=== PATIENT | male | born 1985 | race Caucasian/White ===

== ENCOUNTER 2019-06-07 07:46 | Inpatient (IN) | payer BC, OTHER ==
[~2019-06-07] VITALS: Ht 182.9 cm; Wt 139.3 kg
[2019-06-07] VITALS (7 sets, daily range): BP systolic 137–173; BP diastolic 78–98
[2019-06-07 08:51] LABS: ABSOLUTE NEUTROPHILS 7.7 thou/uL (1.4-8.2); BASOPHILS 0.6 % (0.0-2.0); EOSINOPHILS 4.7 % (0.0-3.0); HEMATOCRIT 41.9 % (42.0-52.0); HEMOGLOBIN 13.8 gm/dL (14.0-18.0); MCH 27.7 pg (26.0-34.0); MCHC 32.9 g/dL (28.0-37.0); MCV 84.2 fL (80.0-100.0); MONOCYTES 6.8 % (1.0-8.0); PLATELET COUNT 482 thou/uL (150-400); POLYS 75.9 % (36.0-66.0); RBC 4.97 mil/uL (4.50-6.00); WBC 10.1 thou/uL (4.0-11.0)
[2019-06-07 08:55] LABS: CALCIUM 9.5 mg/dL (8.5-10.1); CREATININE 0.7 mg/dL (0.7-1.3); POTASSIUM 4.2 mmol/L (3.5-5.1)
[2019-06-07 09:01] LABS: ALBUMIN 2.5 g/dL (3.4-5.0); DIRECT BILIRUBIN 3.4 mg/dL (<0.1-0.2); TOTAL BILIRUBIN 4.6 mg/dL (<0.1-1.0); TOTAL PROTEIN 7.9 g/dL (6.4-8.2)
--- NOTE | 2019-06-07 17:19 | NUR ---
A&O, clam and pleasant; denied pain, no n/v, appetite good, tolerate food well. vss, afebrile, denied pain. Lab reviewed; patient watching TV in bed. Doctor is notified. will keep monitoring.
--- NOTE | 2019-06-07 22:26 | NUR ---
Assumed pt @1915. pt a&ox4. pt stated frustration about not being seen by anyone to come up with a treatment plan for him. nurse explained that GI has been consulted and hopefully theyre come in the morning to see pt. Pt expressed understanding. pt BG around 1800 was in the 300's. pt refused for BG to be checked, stating that he does not want to take insulin if he has too. assessments benign. pt is resting with no distress. call light in reach and pt is encouraged to call for any assistance. will cont to monitor
[2019-06-08 03:46] VITALS: BP 154/81
[2019-06-08 05:40] LABS: HEMATOCRIT 35.5 % (42.0-52.0); MCH 26.9 pg (26.0-34.0); MCHC 32.5 g/dL (28.0-37.0); MCV 82.7 fL (80.0-100.0); RBC 4.29 mil/uL (4.50-6.00); RDW 13.9 % (10.5-14.5); WBC 11.4 thou/uL (4.0-11.0)
[2019-06-08 05:53] LABS: ALBUMIN 2.3 g/dL (3.4-5.0); CALCIUM 9.1 mg/dL (8.5-10.1); CREATININE 0.6 mg/dL (0.7-1.3); HEMOGLOBIN 11.5 gm/dL (14.0-18.0); TOTAL BILIRUBIN 3.3 mg/dL (<0.1-1.0); TOTAL PROTEIN 6.9 g/dL (6.4-8.2)
[2019-06-08 08:56] VITALS: BP 152/83
[2019-06-08 12:04] LABS: PROTIME 10.2 Seconds (9.3-11.4)
--- NOTE | 2019-06-08 16:02 | NUR ---
PT ADMITTED RELATED TO ELEVATED LFT'S, ABNORMAL CT OF ABD. CM EVIEWED CHART AND SPOKE WITH CARE TEAM. CM MET WITH PT AT BEDSIDE THIS DAY. PT IS A&O X4. CM ROLE INTRODUCED. PT INDICATED HE LIVES IN A HOUSE ALONE WITH 3 STEPS TO ENTER AND 12 STEPS INSIDE. 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 PT INICATED NO DME OR HH HX. PT INDICATED NO PCP CURRENTLY BUT THAT HE WILL CHECK WITH HIS INSURANCE AND FIND AN IN [facility] IN [facility] [place]. PT INDICATED HE PLANS TO RETURN HOME ONCE MEDICALLY STABLE. CM TO FOLLOW INDICATED WITH DC PLANNING.
[2019-06-08 17:00] VITALS: BP 152/82
[2019-06-08 17:08] LABS: IgG 1050 mg/dL (700-1600)
[2019-06-08 17:19] LABS: HDL CHOLESTEROL 24 mg/dL (>40); TC:HDL 17.5 Ratio (Not establshd); TRIGLYCERIDE 474 mg/dL (<150); VLDL 95 mg/dL (<40)
[2019-06-08 17:29] LABS: CHOLESTEROL 420 mg/dL (<200)
[2019-06-08 19:06] VITALS: BP 139/87
--- NOTE | 2019-06-08 19:45 | NUR ---
ASSUMED CARE OF PT AT APPROX 0700. PT IS LAERT AND ORIENTED X4. ASSESSMERNT CHARTED. DENIES PAINA ND SOA. PT VERY VERY NERVOUS AND ANXIOUDA BOUT INSULIN TRYING TO REFUSE BUT AFTER SEVERAL CONVESATIONS PT IS IN AGREEANCE. I EDUCATED PATIENT STEP BY STEP WHAT I WAS DOING DURING ADMINSTRATIONS THEN EDUCATED PATIENT ON THE SS OF HYPOGLYCEMIA HE THIS IS HIS FIRST TIME. PT VERY VERY ANXIOUS BUT TOLERATED WELL. ASSESSMENT CHARTED. PT TO BE NPO AFTER MIDNIGHT FOR GI PROCEUDRE IN AM. PT AWARE. PT MAKING PROGRESS TOWARDS POC GOALS.
[2019-06-09 00:10] LABS: GLYCOHEMOGLOBIN (HGB A1C) 10.6 % (4.8-5.6)
--- NOTE | 2019-06-09 01:40 | NUR ---
ASSUMED PT CARE AT 1900 WITH PT IN CHAIR WATCHING TV.PT IS A/O X4 .PT APPEARED TO BE IN NO DISTRESS.PT DENIED PAIN AND SOA.PT IS UP AD BLAISE AND CALLS FOR ASSISTANCE IF NEEDED.PT WAS NPO FROM MIDNIGHT FOR EGD TODAY.PT IS ACCUCHECK ACHS .WILL CONTINUE TO MONITOR PER POC
[2019-06-09 06:16] LABS: HEMATOCRIT 36.7 % (42.0-52.0); HEMOGLOBIN 12.1 gm/dL (14.0-18.0); MCH 27.2 pg (26.0-34.0); MCV 82.5 fL (80.0-100.0); RBC 4.44 mil/uL (4.50-6.00); RDW 13.8 % (10.5-14.5); WBC 9.7 thou/uL (4.0-11.0)
[2019-06-09 06:43] LABS: ALBUMIN 2.5 g/dL (3.4-5.0); DIRECT BILIRUBIN 2.1 mg/dL (<0.1-0.2); TOTAL PROTEIN 7.1 g/dL (6.4-8.2)
[2019-06-09 06:47] LABS: % SATURATION 21 % (20-39); IRON 57 ug/dL (65-175); TIBC 271 ug/dL (250-450)
[2019-06-09 07:14] VITALS: BP 146/94
[2019-06-09 10:07] LABS: HAV IgM AB (ANTI-HAV IgM) Negative (Negative); HEPATITIS B SURFACE AG Negative (Negative); HEPATITIS C VIRUS AB <0.1 (0.0-0.9)
[2019-06-09] MEDS ORDERED: PANTOPRAZOLE SO40 M1 PO (10:32)
[2019-06-09] MEDS ORDERED: GLYBURIDE 5 MG T5 M1 PO (10:34)
--- NOTE | 2019-06-09 10:56 | HC ---
[facility] [place] [address] CONSULTATION Name: SANTA CANTU Room #: 458-P ADM IN M.R.#: [id number] Admission: 06/07/19 Attend Phys: Jocelyn Kirkpatrick MD Discharge: Date of : 85 Report #: [id number] THIS REPORT FOR: //name// CC: FAM physician/PCP Jocelyn Kirkpatrick DATE OF SERVICE: 06/08/2019 CONSULTING PHYSICIAN: Dr. Wood. REASON FOR CONSULTATION: Uncontrolled type 2 diabetes mellitus. HISTORY OF PRESENT ILLNESS: This is a 34-year-old male patient whose medical background is significant for obesity and type 2 diabetes mellitus. The patient notes that he was recently afflicted with influenza, which took him a few days to recover from towards april, early May. He notes that a few days afterwards he developed worsening jaundice, which prompted him to go to a nearby urgent care. There, the patient was investigated with a CT scan of the abdomen as well as laboratory testing only to receive a call from the care provider at that urgent care facility, prompting him to present to the hospital for further care. When questioned about the history of type 2 diabetes mellitus, the patient notes that it was diagnosed about 5 years ago. At that time, he was maintained on metformin monotherapy and he recalls having had a fairly good level of control on that regimen with blood glucose values running in the low 100s. However, with him losing insurance at that time as well as his primary care physician relocating, the patient was lost to followup and has not been on any antidiabetic therapy for the past 4 years. The patient has not monitored his blood glucose values, whatsoever, during that timeframe. He recalls having had intermittent issues of polyuria, polydipsia, and excessive thirst over the past several months. The patient attempted lifestyle changes and succeeded to lose weight at some point in the past years, but regained more than 30 pounds over the past year. Other than that, the patient is not aware of issues pertaining to hypertension, hyperlipidemia or other morbidities. The patient is not aware of diabetic complications of retinopathy, neuropathy or kidney disease. REVIEW OF SYSTEMS: CONSTITUTIONAL: Fatigue, tiredness, weight regain over the past year. Negative for fever or chills. HEENT: Jaundice, but negative for sinus pain, ear drainage. PULMONARY: Negative for shortness of breath, cough or hemoptysis. CARDIAC: Negative for chest pain, palpitations, syncope or presyncope. GASTROINTESTINAL: Noted for progressive jaundice, but not nausea, vomiting or changes in bowel frequency. NEUROLOGY: Negative for loss of consciousness, headaches, seizure activity. [address] [address] CONSULTATION Name: SANTA CANTU Room #: 458-P [facility] IN M.R.#: [id number] Admission: 06/07/19 Attend Phys: Jocelyn Kirkpatrick MD Discharge: Date of : 85 Report #: [id number] PSYCHIATRIC: Negative for delusions, hallucinations. SKIN: Noted for generalized jaundice, but negative for rash, ulceration, itching or other major abnormalities. Otherwise, his review of systems noncontributory other than those mentioned in HPI. PAST MEDICAL HISTORY: 1. Obesity. 2. Type 2 diabetes mellitus. 3. Jaundice. OUTPATIENT MEDICATIONS: None. ALLERGIES: No known drug allergies. FAMILY HISTORY: Noncontributory. 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 He denies use of tobacco or illicit drugs. He drinks alcohol only rarely. PHYSICAL EXAMINATION: GENERAL: A pleasant young male patient who is not in apparent pain or distress. VITAL SIGNS: Blood pressure is 152/83 mmHg, heart rate is 91 beats per minute, respiration 18 per minute, temperature is 36.7 degrees. CONSTITUTIONAL: Appears comfortable, not in apparent distress. HEENT: Slightly icteric sclerae. Intact extraocular motions. NECK: Supple without JVD, carotid bruits or lymphadenopathy. I do not appreciate thyromegaly. CHEST: Clear to auscultation with good air entry bilaterally. No wheezes or crackles. HEART: Regular rate and rhythm without murmurs or gallops. ABDOMEN: Obese, soft, lax. No guarding. Active bowel sounds. EXTREMITIES: Lower extremity exam, trace ankle edema bilaterally. Pedal pulses are appreciated. Sensation to light touch is largely intact. NEUROLOGIC: Awake, alert and oriented to time, place and person. The remainder of his examination is nonfocal. PSYCHIATRIC: Interactive, appropriate, pleasant. Normal mood and affect. LABORATORY RESULTS: Blood glucose values; he had 3 recordings of blood sugars here that were 355, 235, 332 mg/dL. Otherwise, sodium was 134, potassium 4.0, chloride 97, CO2 of 26, anion gap 11, BUN 5, creatinine 0.6, AST 81, lipase 412, total bilirubin 3.3, direct bilirubin 3.4, calcium 9.1, alkaline phosphatase 317, ALT 200, total protein 6.9, albumin 2.3. EGFR 154. White blood count 11.4, hemoglobin 11.5, hematocrit 35.5, platelets 490. [facility] [address] [place] [address] CONSULTATION Name: SANTA CANTU Room #: 458-P [facility] IN [place].#: [id number] Admission: 06/07/19 Attend Phys: Jocelyn Kirkpatrick MD Discharge: Date of : 85 Report #: [id number] ASSESSMENT AND PLAN: 1. Type 2 diabetes mellitus. As noted above, the patient has an established diagnosis of type 2 diabetes mellitus that he basically had not actively treated for the past 4 years. I would like to obtain a hemoglobin A1c level to better understand his current level of control. The patient was counseled about the pathogenesis of type 2 diabetes mellitus, and the importance of obtaining and maintaining adequate glycemic control to prevent diabetic complications, which he understands well. Short term, and until his hepatic pathology gets further clarified, I would rather avoid oral antidiabetic agents and utilize a combination of Lantus insulin at a dose of 18 units daily in addition to a low intensity Humalog supplemental scale. When I shared my plans with the patient, he was extremely upset about the use of insulin and would not allow it until he was reassured that this was short term strategy aimed at resolving glucotoxicity and hoping to enable bridging to oral antidiabetic agents in the near future. Blood glucose monitoring will commence a.c. and at bedtime. 2. Hyperlipidemia. The diagnosis of type 2 diabetes mellitus sets the patient up for cardiovascular morbidity and mortality. I would like to obtain a lipid panel to further assess this outlook. Also, the patient has a mildly elevated lipase, and a triglyceride assessment would be fairly important in determining whether he has severe dyslipidemia or not. 3. Thyroid dysfunction. Much in the same manner, the patient is at high risk for thyroid dysfunction and this would be an important aspect to evaluate prior to engaging lipid-lowering therapy if that proves to be needed. I will request a TSH and free T4 to achieve that. 4. Hypertension. The patient's level of blood pressure control has not been ideal since his presentation. I will obtain a urine microalbumin level to determine his need for the utilization of ARB agents or JOYCELYN agents. 5. Hepatitis. The patient has elevated liver enzymes, alkaline phosphatase and other liver function indices. He is undergoing gastrointestinal evaluation for this issue. I will be tuned in to the results of this workup. I certainly appreciate this consultation by Dr. Wood. <ELECTRONICALLY SIGNED> By: Maldonado Vega MD 06/09/19 [id number] Maldonado Vega MD /nt
[2019-06-09 13:10] VITALS: BP 146/94
--- NOTE | 2019-06-09 13:12 | NUR ---
PT NPO THIS AM FOR GI SCOPE, BIOPSY OF POLYP SENT FOR PATHOLOGY. PT TO FOLLOW UP WITH GI OUTPATIENT. SEEN BY [facility] GIVEN TO PATIENT. EDUCATED PT ON BLOOD SUGAR CHECKS AND INSULIN. IV DISCONTINUED. TOLERATING DIET. DISCHARGE SUMMARY REVIEWED WITH PATIENT. NO QUESTIONS OR CONCERNS.
--- NOTE | 2019-06-09 13:20 | NUR ---
CARE TEAM INDICATED THAT PT IS MEDICALLY STABLE TO DC HOME THIS DAY. CARE TEAM INDICATED THAT PT IS DISCHARGING HOME ON INSULIN AND HAD A SCRIPT FOR A GLUCOMETER WHICH WERE ALL NEW TO HIM. CM SPOKE WITH NURSE AND INDICATED THAT CM COULD BRING ALL SCRIPTS DOWN TO OP PHARMACY TO DUNN OUT AND FILL IF DESIRED. PT INDICATED HE WOULD FILL SCRIPTS HIM SELF. PT IS TO DC HOME TO SELF CARE. NO OTHER CM INTERVENTION INDICATED. CASE CLOSED.
[2019-06-10 12:09] LABS: ANA INTERPRETATION Negative (Negative)
== END 2019-06-09 13:37 | disposition home or self-care (01) | DRG 442 ==
LOC: ER 07:46 → 4W 10:20 → EROBS 10:20 → 4W 10:57
PROVIDERS: Emergency Medicine; Internal Medicine; Nurse Practitioner; ADMIT Internal Medicine
PROC: 0DBA8ZX Excision of Jejunum, Via Natural or Artificial Opening Endoscopic, Diagnostic (ICD-10-PCS; principal; 2019-06-09)
DX: B17.9 Acute viral hepatitis, unspecified (principal); Z68.41 Body mass index [BMI] 40.0-44.9, adult; K20.8 Other esophagitis; E66.9 Obesity, unspecified; E78.5 Hyperlipidemia, unspecified; I10 Essential (primary) hypertension; K76.0 Fatty (change of) liver, not elsewhere classified; E11.65 Type 2 diabetes mellitus with hyperglycemia; R59.9 Enlarged lymph nodes, unspecified; K31.7 Polyp of stomach and duodenum; D13.39 Benign neoplasm of other parts of small intestine; K44.9 Diaphragmatic hernia without obstruction or gangrene; Z83.3 Family history of diabetes mellitus; Z79.899 Other long term (current) drug therapy
CPT/HCPCS: 10040; 10045; 62110; 62900; 70005